=== PATIENT | male | born 1990 | race Caucasian/White ===

== ENCOUNTER 2017-10-17 22:30 | Emergency (ER) | payer OTHER ==
[2017-10-17 22:50] VITALS: BP 163/99; RESP 21; TEMP 97.8; O2SAT 99
--- NOTE | 2017-10-18 00:17 | ED PDOC ---
HPI: Hypertension/Hypotension Time Seen by Provider: 10/17/17 23:30 Chief Complaint (Nursing): Palpitations Chief Complaint (Provider): Palpitations History Per: Patient History/Exam Limitations: no limitations Onset/Duration Of Symptoms: Mins (x45 mins [employer]) Current Symptoms Are (Timing): Better Associated Symptoms: denies: Chest Pain, Dyspnea Additional Complaint(s): 27 year old male presents to ED with complaints of 2 episodes of palpitations x45 minutes [employer] and has no past medical history. Patient notes that he has had 1 episode of palpitations episode years ago with a subsequent normal stress test. Patient notes that the fleeting palpitations caused anxiety, but states he feels better in the ED. (-) chest pain or SOB. PCP: Keyur Jose Past Medical History Reviewed: Historical Data, Nursing Documentation, Vital Signs Vital Signs: Last Vital Signs Temp 97.8 F 10/17/17 22:47 Pulse 97 H 10/17/17 22:47 Resp 21 10/17/17 22:47 BP 163/99 H 10/17/17 22:47 Pulse Ox 99 10/17/17 22:47 - Medical History PMH: No Chronic Diseases - Family History Family History: States: No Known Family Hx Denies: CAD - Social History Current smoker - smoking cessation education provided: No Ex-Smoker (has not smoked in the last 12 months): No Alcohol: None Drugs: Denies - Immunization History Hx Influenza Vaccination: No Hx Pneumococcal Vaccination: No - Home Medications Home Medications: Ambulatory Orders Medication Instructions Recorded Acetaminophen [Tylenol] 975 mg PO Q4 PRN #30 tab 10/14/13 Ondansetron [Zofran Odt] 1 tab SL Q8H PRN #15 odt 10/14/13 - Allergies Allergies/Adverse Reactions: Allergies Allergy/AdvReac Type Severity Reaction Status Date / Time No Known Allergies Allergy Unverified 10/17/17 22:49 Review of Systems ROS Statement: Except As Marked, All Systems Reviewed And Found Negative Cardiovascular: Positive for: Palpitations. Negative for: Chest Pain Respiratory: Negative for: Shortness of Breath Physical Exam - Reviewed Nursing Documentation Reviewed: Yes Vital Signs Reviewed: Yes - Physical Exam Appears: Positive for: Non-toxic, No Acute Distress Skin: Positive for: Normal Color, Warm, Dry Eye Exam: Positive for: Normal appearance, EOMI, PERRL ENT: Positive for: Normal ENT Inspection Neck: Positive for: Normal, Painless ROM, Supple Cardiovascular/Chest: Positive for: Regular Rate, Rhythm. Negative for: Murmur Respiratory: Positive for: Normal Breath Sounds. Negative for: Respiratory Distress Neurologic/Psych: Positive for: Alert, Oriented. Negative for: Motor/Sensory Deficits - ECG Interpretation Of Abn EKG: Sinus arrhythmia Rate: 88 O2 Sat by Pulse Oximetry: 99 (RA) Pulse Ox Interpretation: Normal Medical Decision Making Medical Decision Makin Initial impression: palpitations Initial plan: * Labs * Trop I * CXR 0000 Patient signed out to Dr. Randolph pending labs. Scribe Attestation: Documented by Annmarie Baker acting as a scribe for Vinny Rose MD. Scribe Attestation: All medical record entries made by the Scribe were at my direction and personally dictated by me. I have reviewed the chart and agree that the record accurately reflects my personal performance of the history, physical exam, medical decision making, and the department course for this patient. I have also personally directed, reviewed, and agree with the discharge instructions and disposition. Disposition - Patient ED Disposition Is Patient to be Admitted: Transfer of Care - Disposition Disposition Time: 00:00 Condition: STABLE Patient Signed Over To: Moise Randolph Handoff Comments: pending labs
[2017-10-18 00:19] VITALS: PULSE 88
--- NOTE | 2017-10-18 00:32 | ED PDOC ---
- Laboratory Results Result Diagrams: 10/18/17 00:43 10/18/17 00:43 - ECG O2 Sat by Pulse Oximetry: 99 (RA) Medical Decision Making Medical Decision Makin Patient endorsed to this physician from Dr. Rose pending labs. 0228 Labs reviewed: no clinically significant abnormalities. Patient reports feeling better and is stable for discharge home. Dx: palpitations Patient instructed to follow up with PMD in 1-2 days. Return precautions given. Scribe Attestation: Documented by Annmarie Baker acting as a scribe Moise Randolph MD. Scribe Attestation: All medical record entries made by the Scribe were at my direction and personally dictated by me. I have reviewed the chart and agree that the record accurately reflects my personal performance of the history, physical exam, medical decision making, and the department course for this patient. I have also personally directed, reviewed, and agree with the discharge instructions and disposition. Disposition - Clinical Impression Clinical Impression: Palpitations - POA Present On Arrival: None - Disposition Disposition: Routine/Home Disposition Time: 02:28 Condition: STABLE Instructions: Palpitations Forms: [facility] (L[place]uanian), [facility] School/Work Excuse
[2017-10-18 00:52] LABS: BASO % 0.3 % (0.0-2.0); EOS % 0.4 % (0.0-4.0); LYMPH # 0.9 K/uL (1.0-4.3); LYMPH % 10.9 % (20.0-40.0); MEAN CELL VOLUME 90.4 fl (80.0-94.0); MEAN CORPUSCULAR HEMOGLOBIN 30.5 pg (27.0-31.0); MEAN CORPUSCULAR HGB CONC 33.8 g/dL (33.0-37.0); MONO # 0.4 K/uL (0.0-0.8); MONO % 4.7 % (0.0-10.0); NEUT % 83.7 % (50.0-75.0); NRBC % 0.4 % (0.0-0.0); RBC 5.23 Mil/uL (4.40-5.90); RED CELL DISTRIBUTION WIDTH 12.5 % (11.5-14.5); WHITE BLOOD COUNT 8.3 K/uL (4.8-10.8)
[2017-10-18 01:05] LABS: ALB/GLOB RATIO 1.3 (1.0-2.1); ALBUMIN 4.7 g/dL (3.5-5.0); ALT/SGPT 44 U/L (21-72); AST/SGOT 28 U/L (17-59); BLOOD UREA NITROGEN 19 mg/dl (9-20); CALCIUM 9.6 mg/dL (8.4-10.2); GFR AFRICAN-AMERICAN > 60; GFR NON-AFRICAN AMERICAN > 60
--- NOTE | 2017-10-18 09:58 | RAD ---
HISTORY: palpitations COMPARISON: No prior. TECHNIQUE: Chest PA and lateral FINDINGS: LUNGS: No active pulmonary disease. PLEURA: No significant pleural effusion identified. No pneumothorax apparent. CARDIOVASCULAR: Normal. OSSEOUS STRUCTURES: No significant abnormalities. VISUALIZED UPPER ABDOMEN: Normal. OTHER FINDINGS: None. IMPRESSION: No active disease.
== END 2017-10-18 03:00 | disposition home or self-care (01) ==
LOC: H.ER 22:30
DX: R00.2 Palpitations (principal); I10 Essential (primary) hypertension